=== PATIENT | female | born 1975 | race Hispanic/Latino ===

== ENCOUNTER 2023-04-15 14:24 | Emergency (ER) | payer BC, OTHER ==
[~2023-04-15] VITALS: Ht 152.4 cm; Wt 113.4 kg
[~2023-04-15 14:24] MED LIST: ALBU0.63 NEB; APIX2.5T PO; DEXA6TAB PO
[2023-04-15] MEDS ORDERED: ONDANSETRON 4MG INJ IVP ONE (15:00)
[2023-04-15] MEDS ORDERED: 0.9%NACL 1000ML 1,000 ML IV ONE (15:00)
[2023-04-15 15:32] LABS: BASOPHILS % (AUTO) 0.6 % (0.0-5.0); EOSINOPHILS % (AUTO) 0.2 % (0.0-8.0); HEMATOCRIT 40.1 % (36-48); LYMPHOCYTES % (AUTO) 15.8 % (21.0-51.0); MEAN CORPUSCULAR HEMOGLOBIN 29.3 pg (27.0-33.0); MEAN CORPUSCULAR HGB CONC 31.7 g/dL (32.0-36.0); MEAN CORPUSCULAR VOLUME 92.6 fL (79-99); MONOCYTES % (AUTO) 4.8 % (3.0-13.0); NEUTROPHILS % (AUTO) 76.8 % (40.0-77.0); PLATELET COUNT (AUTO) 287 K/uL (130-400); RED BLOOD CELL COUNT(AUTO) 4.33 MIL/uL (4.00-5.50); RED CELL DISTRIBUTION WIDTH 12.5 % (11.0-15.5); WHITE BLOOD COUNT (AUTO) 8.9 K/uL (4.8-10.8)
[2023-04-15 15:45] LABS: CARBON DIOXIDE 28 mmol/L (21-32); CHLORIDE 106 mmol/L (101-111); CREATININE 0.9 mg/dL (0.5-1.5); GLOMERULAR FILTR. RATE CALC 78 mL/min (>90); GLUCOSE,RANDOM 109 mg/dL (70-105); SODIUM SERUM 141 mmol/L (136-145); UREA NITROGEN, BLOOD 16 mg/dL (7-18)
[2023-04-15 15:56] LABS: ALANINE AMINOTRANSFERASE 21 U/L (12-78); ALBUMIN 3.8 g/dL (3.5-5.0); ASPARTATE AMINOTRANSFERASE 11 U/L (10-37); CREATINE KINASE, TOTAL 56 U/L (21-232); MYOGLOBIN 35 ng/mL (10-92); TOTAL PROTEIN, SERUM 7.9 g/dL (6.0-8.3)
[2023-04-15] MEDS ORDERED: MECLIZINE HCL 25 MG TABLET PO ONE (16:00)
[2023-04-15] MEDS ORDERED: PHEN12S PR (16:49)
[2023-04-15] MEDS ORDERED: MECL-160 PO (16:57)
[2023-04-15 17:19] VITALS: BP 132/74
== END 2023-04-15 17:20 | disposition home or self-care (01) ==
LOC: EDH 14:24
DX: R42 Dizziness and giddiness (principal); J45.909 Unspecified asthma, uncomplicated
CPT/HCPCS: 99284; 96374; 71045; 96361; 82550; 83874; 84484; 80053; 85025; 85378; 36415; 93005; J7030; J2405